=== PATIENT | female | born 1950 | race Caucasian/White ===

== ENCOUNTER 2016-09-23 11:00 | Emergency (ER) | payer MEDICARE ==
[~2016-09-23] VITALS: Ht 154.9 cm; Wt 86.0 kg
[~2016-09-23 11:00] MED LIST: ASPI81TA21 PO; GLUCTAB PO; NEUR300C PO; PROZ20CA11 PO; SIMV20 PO; ULTR50TA PO; VERA240CR PO; blood pressure med PO
[2016-09-23 11:05] VITALS: BP 111/54; PULSE 46; RESP 20; O2SAT 96
[2016-09-23 11:06] VITALS: BP 111/54; PULSE 46; RESP 20; O2SAT 96
--- NOTE | 2016-09-23 11:28 | PD ---
HPI Chief Complaint: Abnormal Results Time Seen by Provider: 11:09 Travel History International Travel<30 days: No Contact w/Intl Traveler<30days: No Traveled to known affect area: No History of Present Illness HPI Patient 65-year-old female with a history of hypogammaglobulinemia presents emergency department after found to be hypotensive and altered prior to receiving her IVIG infusion today. According to EMS the patient was premedicated with Benadryl as she is normally the IV Ig infusion was started and the patient became mildly hypotensive and bradycardic. On arrival the patient certainly is mildly hypotensive and bradycardic, she is GCS of 14 losing 1 point for eyes. She denies any physical ice, denies any chest pain abdominal pain nausea vomiting diarrhea constipation back pain or headache. She states she took her normal blood pressure medicines this morning and just feels a little queasy. 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) Blood Disorders: No Anxiety: Yes Depression: Yes Heart Rhythm Problems: Yes Cancer: No Cardiac Catheterization: No Cardiovascular Problems: Yes (HTN ) High Cholesterol: Yes Congestive Heart Failure: No COPD: Yes Cerebrovascular Accident: Yes (tia) Diabetes: Yes Patient Takes Glucophage: Yes Diminished Hearing: Yes Genitourinary: Yes (decreased in kidney function) Headaches: Yes Hypertension: Yes Immune Disorder: No Implanted Vascular Access Dvce: Yes Kidney Stones: Yes Musculoskeletal: Yes Neurologic: Yes (MS) Reproductive: No Respiratory: Yes (COPD) Myocardial Infarction: No Pancreatitis: Yes Tetanus Vaccination: Unknown ?: Not Menopausal: Yes Past Surgical History Abdominal Surgery: Yes ("TUMMY TUCK" BREAST REDUCTION) Body Medical Devices: TITANIUM PLATE IN NECK Coronary Artery Bypass Graft: No Gynecologic Surgery: Yes (HYSTERECTOMY) Hysterectomy: Yes Other Surgery: Yes Family History Family Myocardial Infarction: Yes Social History Alcohol Use: Yes (6 PACK/DAY beer) Tobacco Use: Yes (3 PPD) Substance Use: No Allergies-Medications (Allergen,Severity, Reaction): Coded Allergies: Codeine (Verified Allergy, Severe, 09/23/16) Dilaudid (Verified Allergy, Severe, RASH/ITCHING, 09/23/16) Morphine (Verified Allergy, Severe, 09/23/16) Oxycodone (Verified Allergy, Severe, 09/23/16) Penicillin (Verified Allergy, Severe, 09/23/16) Phenobarbital (Verified Allergy, Severe, 09/23/16) Reported Meds & Prescriptions Reported Meds & Active Scripts Active Reported Diphenoxylate-Atropine 2.5-0.025 Mg Tab 1 Tab PO QID PRN Probiotic (Lactobacillus Acidophilus) 1 Cap Cap 1 Cap PO EVERY OTHER DAY Cranberry Urinary Comfort (Vitamins C & E) 1 Cap 125 Mg PO EVERY OTHER DAY Tramadol (Tramadol HCl) 50 Mg Tab 50 Mg PO DIRECTED PRN Fluoxetine (Fluoxetine HCl) 10 Mg Tab 10 Mg PO DAILY Atorvastatin (Atorvastatin Calcium) 40 Mg Tab 40 Mg PO DAILY Verapamil HCl ER (Verapamil HCl) 240 Mg Cap 1 DAILY Losartan (Losartan Potassium) 50 Mg Tab 50 Mg PO BID Ventolin Hfa 18 GM Inh (Albuterol Sulfate) 90 Mcg/Act Aer 2 Puff INH QID PRN Metformin HCl ER (Metformin HCl) 1,000 Mg [id number] 500 Mg DAILY Glimepiride 1 Mg Tab 1 Mg PO DAILY Take with breakfast or first main meal Gabapentin 300 Mg Cap 300 Mg PO HS take 2 or 3 at HS or 2 at midnight and one later Ipratropium Neb (Ipratropium [place]) 0.5 Mg/2.5 Ml Amp 0.02 % NEB QID Albuterol Neb (Albuterol Sulfate) 2.5 Mg/3 Ml Neb 2.5 Mg NEB QID NEB Fluorometholone 5 Ml Drops.susp 1 Drop ou Refresh Plus Unit-Dose 0.5% Opth (Carboxymethylcellulose Sodium 0.5% Opth) 0.5% Drops 1 Drop EACH EYE QID Lorazepam 0.5 Mg Tab 0.5 Mg PO DIRECTED PRN Lorazepam 0.5 Mg Tab 1 Tab PO DAILY PRN Vitamin D-3 (Cholecalciferol) 1,000 Unit Cap 1,000 DAILY Calcium (Calcium Carbonate) 600 Mg Tab 1,200 DAILY [blood pressure med] Unknown Strength Unknown Dose PO BID Review of Systems Except as stated in HPI: all other systems reviewed are Neg Physical Exam Narrative GENERAL: Well-developed, morbidly obese but in no obvious distress. SKIN: Focused skin assessment warm/dry. Warm, signs of adequate perfusion all 4 extremity. HEAD: Atraumatic. Normocephalic. No richard signs no raccoons eyes. EYES: Pupils equal and round. No scleral icterus. No injection or drainage. ENT: No nasal bleeding or discharge. Mucous membranes pink and moist. NECK: Trachea midline. No JVD. CARDIOVASCULAR: Regular rhythm with mild bradycardia. 2+ bilateral equal pulses in all 4 extremities.. No murmur appreciated. RESPIRATORY: No accessory muscle use. Clear to auscultation. Breath sounds equal bilaterally. GASTROINTESTINAL: Abdomen soft, non-tender, nondistended. Hepatic and splenic margins not palpable. MUSCULOSKELETAL: No obvious deformities. No clubbing. No cyanosis. No edema. NEUROLOGICAL: GCS of 14 (eyes 3). Awake and alert. No obvious cranial nerve deficits. Motor grossly within normal limits. Normal speech. PSYCHIATRIC: Appropriate mood and affect; insight and judgment normal. Data Data Last Documented VS Vital Signs Date Time Temp Pulse Resp B/P Pulse Ox O2 Delivery O2 Flow Rate FiO2 09/23/16 14:41 79 20 177/76 94 09/23/16 12:47 Room Air Orders Electrocardiogram (09/23/16 11:27) Basic Metabolic Panel (Bmp) (09/23/16 11:27) Ckmb (Isoenzyme) Profile (09/23/16 11:27) Complete Blood Count With Diff (09/23/16 11:27) Magnesium (Mg) (09/23/16 11:27) Prothrombin Time / Inr (Pt) (09/23/16 11:27) Act Partial Throm Time (Ptt) (09/23/16 11:27) Troponin I (09/23/16 11:27) Chest, Single Ap (09/23/16 11:27) Ecg Monitoring (09/23/16 11:27) Iv Access Insert/Monitor (09/23/16 11:27) Oximetry (09/23/16 11:27) Oxygen Administration (09/23/16 11:27) Sodium Chloride 0.9% Flush (Ns Flush) (09/23/16 11:30) Sodium Chlorid 0.9% 500 Ml Inj (Ns 500 M (09/23/16 11:30) CKMB (09/23/16 11:35) CKMB% (09/23/16 11:35) Insulin Human Regular Inj (Novolin R Inj (09/23/16 13:00) Bedside Glucose YOLANDE.AC&HS (09/23/16 14:17) Labs Laboratory Tests Test 09/23/16 11:35 White Blood Count 11.0 TH/MM3 Red Blood Count 4.25 MIL/MM3 Hemoglobin 13.0 GM/DL Hematocrit 38.6 % Mean Corpuscular Volume 90.7 FL Mean Corpuscular Hemoglobin 30.6 PG Mean Corpuscular Hemoglobin 33.7 % Concent Red Cell Distribution Width 13.7 % Platelet Count 343 TH/MM3 Mean Platelet Volume 7.0 FL Neutrophils (%) (Auto) 86.5 % Lymphocytes (%) (Auto) 9.2 % Monocytes (%) (Auto) 3.1 % Eosinophils (%) (Auto) 0.8 % Basophils (%) (Auto) 0.4 % Neutrophils # (Auto) 9.5 TH/MM3 Lymphocytes # (Auto) 1.0 TH/MM3 Monocytes # (Auto) 0.3 TH/MM3 Eosinophils # (Auto) 0.1 TH/MM3 Basophils # (Auto) 0.0 TH/MM3 CBC Comment DIFF FINAL Differential Comment Prothrombin Time 10.0 SEC Prothromb Time International 0.9 RATIO Ratio Activated Partial 25.7 SEC Thromboplast Time Sodium Level 131 MEQ/L Potassium Level 5.5 MEQ/L Chloride Level 99 MEQ/L Carbon Dioxide Level 24.0 MEQ/L Anion Gap 8 MEQ/L Blood Urea Nitrogen 20 MG/DL Creatinine 1.36 MG/DL Estimat Glomerular Filtration 39 ML/MIN Rate Random Glucose 310 MG/DL Calcium Level 9.0 MG/DL Magnesium Level 1.9 MG/DL Total Creatine Kinase 302 U/L Creatine Kinase MB 4.7 NG/ML Creatine Kinase MB % 1.6 % Troponin I LESS THAN 0.02 NG/ML MDM Medical Decision Making Medical Screen Exam Complete: Yes Emergency Medical Condition: Yes Interpretation(s) EKG shows sinus bradycardia rate of 45, normal axis normal R-wave progression. No concerning ST segment changes. Nipples otherwise within normal limits. This normal EKG except for rate. Differential Diagnosis Benadryl side effect, beta davie overdose seems unlikely, calcium channel davie overdose seems unlikely, ACS seems unlikely. Narrative Course Patient was roomed in emergency department, initial laboratory workup including CBC, BMP, cardiac enzymes, coag studies are within normal limits. EKG is reassuring. Patient was monitored over the next several hours and her heart rate normalized in the 80s range, blood pressure also normalized. In fact was a little high. Given the symptoms started shortly after Benadryl premedication in favor Benadryl side effect. This was discussed with the patient. No other physical exam findings complaints or laboratory abnormality require further workup at this time. Patient is ambulated to the bathroom, she stable for discharge at this time. 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 Diagnosis Primary Impression: Weakness Additional Impression: Dizziness Additional Instructions: Clear doctor to consider using a lower dose of Benadryl prior to your infusions. Disposition: 01 DISCHARGE HOME Condition: Stable Marquez Dorsey MD Sep 23, 2016 11:28
[2016-09-23] MEDS ORDERED: SODIUM CHLORIDE 0.9% FLUSH 10 ML FLUSH IVF PRN (11:30)
[2016-09-23] MEDS ORDERED: SODIUM CHLORID 0.9% 500 ML INJ 500 ML IV ONE (11:30)
[2016-09-23] MEDS ORDERED: IPRA0.02 NEB (11:37)
[2016-09-23] MEDS ORDERED: LORA-373 PO ×2 (11:37)
[2016-09-23] MEDS ORDERED: CHOL1CAP6 (11:37)
[2016-09-23] MEDS ORDERED: VERA240C (11:37)
[2016-09-23] MEDS ORDERED: FLUO0.1S9 (11:37)
[2016-09-23] MEDS ORDERED: REFR0.5D9 EACH EYE (11:37)
[2016-09-23] MEDS ORDERED: METF-758 (11:37)
[2016-09-23] MEDS ORDERED: VENTAER INH (11:37)
[2016-09-23] MEDS ORDERED: CALC600T25 (11:37)
[2016-09-23] MEDS ORDERED: LOSA50TA PO (11:37)
[2016-09-23] MEDS ORDERED: GLIM1TAB PO (11:37)
[2016-09-23] MEDS ORDERED: GABA300C5 PO (11:37)
[2016-09-23] MEDS ORDERED: ALBU0.08 NEB (11:37)
[2016-09-23] MEDS ORDERED: LACTCAP8 PO (11:42)
[2016-09-23] MEDS ORDERED: ATOR40TA16 PO (11:42)
[2016-09-23] MEDS ORDERED: TRAM50TA PO (11:42)
[2016-09-23] MEDS ORDERED: CRANCAP2 PO (11:42)
[2016-09-23] MEDS ORDERED: DIPH2.5T14 PO (11:42)
[2016-09-23] MEDS ORDERED: FLUO10TA PO (11:42)
--- NOTE | 2016-09-23 12:06 | RADRPT ---
EXAM DATE/TIME: 09/23/2016 11:29 [facility] COMPARISON: No previous studies available for comparison. INDICATIONS : Short of breath. MEDICAL HISTORY : Chronic obstructive pulmonary disease. low blood pressure. SURGICAL HISTORY : None. ENCOUNTER: Initial ACUITY: 1 day PAIN SCORE: 0/10 LOCATION: Bilateral chest FINDINGS: A single view of the chest demonstrates the lungs to be symmetrically aerated without evidence of mas s, infiltrate or effusion. The cardiomediastinal contours are unremarkable. Osseous structures are intact. CONCLUSION: No acute disease. Marquez Negrete MD on September 23, 2016 at 12:03 Board Certified Radiologist. This report was verified electronically.
[2016-09-23 12:08] LABS: AUTOMATED NEUTROPHIL # 9.5 TH/MM3 (1.8-7.7); BASOPHIL % 0.4 % (0.0-2.0); EOSINOPHIL # 0.1 TH/MM3 (0-0.4); EOSINOPHIL % 0.8 % (0.0-4.0); HEMATOCRIT 38.6 % (35.0-46.0); HEMO FLAGS DIFF FINAL; LYMPH % 9.2 % (9.0-44.0); MEAN CELL VOLUME 90.7 FL (80.0-100.0); MEAN CORPUSCULAR HEMOGLOBIN 30.6 PG (27.0-34.0); MEAN CORPUSCULAR HGB CONC 33.7 % (32.0-36.0); MONO % 3.1 % (0.0-8.0); NEUT % 86.5 % (16.0-70.0); PLATELET COUNT 343 TH/MM3 (150-450); RED BLOOD COUNT 4.25 MIL/MM3 (4.00-5.30); RED CELL DISTRIBUTION WIDTH 13.7 % (11.6-17.2)
[2016-09-23 12:20] LABS: APTT (PATIENT) 25.7 SEC (24.3-30.1); INTERNATIONAL NORMALIZED RATIO 0.9 RATIO
[2016-09-23 12:37] LABS: ANION GAP 8 MEQ/L (5-15); BLOOD UREA NITROGEN 20 MG/DL (7-18); CHLORIDE 99 MEQ/L (98-107); CREATINE KINASE 302 U/L (26-192); GLOMERULAR FILTRATION RATE 39 ML/MIN (>89); MAGNESIUM 1.9 MG/DL (1.5-2.5); POTASSIUM 5.5 MEQ/L (3.5-5.1); SODIUM (NA) 131 MEQ/L (136-145)
[2016-09-23 12:47] VITALS: BP 133/60; PULSE 64; RESP 16; O2SAT 98
[2016-09-23 12:49] LABS: CKMB 4.7 NG/ML (0.5-3.6)
[2016-09-23] MEDS ORDERED: INSULIN HUMAN REGULAR 1,000 UNITS/10 ML VIAL IV PUSH ONE (13:00)
[2016-09-23 14:41] VITALS: BP 177/76; PULSE 79; RESP 20; O2SAT 94
--- NOTE | 2016-09-24 08:11 | EKG ---
Date Performed: 09/23/2016 Time Performed: 11:17:37 PTAGE: 65 years EKG: SINUS BRADYCARDIA WITH SHORT ID INTERVAL LOW QRS VOLTAGE IN PRECORDIAL LEADS INCOMPLETE RIG HT BUNDLE BRANCH BLOCK BORDERLINE ECG PREVIOUS TRACING : 06/17/2008 00.21 DOCTOR: Roel Whaley Interpretating Date/Time 09/24/2016 08:05:00
== END 2016-09-23 15:56 | disposition home or self-care (01) ==
LOC: NEPE 11:00
DX: R53.1 Weakness (principal); R42 Dizziness and giddiness; R94.31 Abnormal electrocardiogram [ECG] [EKG]; E11.8 Type 2 diabetes mellitus with unspecified complications; I10 Essential (primary) hypertension; F17.210 Nicotine dependence, cigarettes, uncomplicated; Z79.4 Long term (current) use of insulin; Z79.84 Long term (current) use of oral hypoglycemic drugs; Z79.82 Long term (current) use of aspirin
CPT/HCPCS: 71010; 80048; 82550; 82552; 83735; 84484; 85025; 85610; 85730; 93005; 96374; 99285; J1815; J7040